=== PATIENT | male | born 1990 | race Caucasian/White ===

== ENCOUNTER 2017-10-27 20:24 | Emergency (ER) | payer OTHER ==
[~2017-10-27] VITALS: Ht 160 cm; Wt 57.2 kg
[2017-10-27] MEDS ORDERED: LIDOCAINE HCL/PF 1% 10 MG/ML 5ML VIAL IJ ONE (23:15)
[2017-10-27] MEDS ORDERED: IBUPROFEN 400MG TABLET PO ONE (23:15)
[2017-10-27] MEDS ORDERED: TETANUS, DIPHTHERIA, PERTUSSIS VAC/PF 0.5ML (>7YR OLD) IM ONE (23:15)
[2017-10-27] MEDS ORDERED: BACITRACIN ZINC OINT UDPKT TOP ONE (23:15)
[2017-10-27 23:58] VITALS: BP 121/70
== END 2017-10-27 23:58 | disposition home or self-care (01) ==
LOC: ER 20:24
DX: S01.111A Laceration without foreign body of right eyelid and periocular area, initial encounter (principal); W51.XXXA Accidental striking against or bumped into by another person, initial encounter; Y93.89 Activity, other specified; Y92.89 Other specified places as the place of occurrence of the external cause; Y99.8 Other external cause status
CPT/HCPCS: 12011; 90471; 90715; 99283; J3490; Z7610